=== PATIENT | female | born 1970 | race Caucasian/White ===

== ENCOUNTER 2019-06-13 18:21 | Emergency (ER) | payer MEDICAID ==
[~2019-06-13] VITALS: Ht 144.8 cm; Wt 51.3 kg
[2019-06-13 18:26] VITALS: Ht 144.8 cm; Wt 51.3 kg
[2019-06-13 19:29] VITALS: BP 133/67
== END 2019-06-13 19:45 | disposition home or self-care (01) ==
LOC: ED 18:21
DX: M54.31 Sciatica, right side (principal); M25.512 Pain in left shoulder; I10 Essential (primary) hypertension; E11.9 Type 2 diabetes mellitus without complications
CPT/HCPCS: J1885